=== PATIENT | male | born 1940 | race Caucasian/White ===

== ENCOUNTER 2022-04-12 10:29 | Day surgery (SDC) | payer MEDICARE, OTHER ==
[~2022-04-12] VITALS: Ht 193 cm; Wt 71.0 kg
[~2022-04-12 10:29] MED LIST: ASPI325 PO; Cipro500 MG PO; DOCU100 PO; FINA5 PO; Flomax0.4 MG PO; LISI5 PO; METF500 PO; METO100ER PO; NITR.8TP TOP; Nitrostat0.4 MG SL; OXYACE5T PO; Simvastatin20 MG PO
[2022-04-12] MEDS ORDERED: ASPI81CH PO (11:36)
[2022-04-12] MEDS ORDERED: Nitroglycerin1 EAC1 TOP (11:37)
[2022-04-12] MEDS ORDERED: TAMS.4ER PO (11:38)
--- NOTE | 2022-04-12 18:49 | NUR ---
ADMISSION/SHIFT SUMMARY: PT ADMITTED FROM [facility] [employer] THIS AFTERNOON S/P PACEMAKER PLACEMENT. PT ARRIVES A&Ox4, O2 SATS >92% ON RA, PT DENIES SOB. PACEMAKER PLACED TO R UPPER CHEST, MINIMAL EXUDATE ONTO COVERING BANDAGE (UNCHANGED SINCE INITIAL ARRIVAL TO ROOM), SLING APPLIED TO R ARM, ICE PROVIDED TO PT, PT C/O DULL ACHE TO R UPPER CHEST AND MEDICATED PER EMAR. DURING RECOVERY VITALS, PT NOTED TO BE HYPERTENSIVE, PROVIDER NOTIFIED, BP HAS TRENDED DOWN TO WNL AT THIS TIME. SR ON MONITOR W/RATE 60s-70s. PT RESTING QUIETLY IN ROOM W/CALL LIGHT IN REACH. WILL CONTINUE TO MONITOR AND TREAT ACCORDINGLY UNTIL CHANGE OF SHIFT.
--- NOTE | 2022-04-13 05:03 | NUR ---
SHIFT SUMMARY: PT ALERT AND ORIENTED X4, ABLE TO FOLLOW COMMANDS AND MAKE NEEDS KNOWN. COOPERATIVE WITH CARE. BP STABLE, HR PACED 70'S-80'S, AFEBRILE, SATURATIONS >98% ON ROOM AIR. RESPIRATIONS EVEN AND UNLABORED. PT DENIES CP/PRESSURE/SOB. PULSES STRONG AND EQUAL THROUGHOUT. PT POST PACEMAKER PLACEMENT TO R. CHEST WALL. MINIMAL OOZING NOTED ON DRESSING, SLIGHT BRUISING NOTED. SLING IN PLACE. EDUCATION PROVIDED ON RESTRICTED MOVEMENT. MEDICATED X2 FOR PAIN THROUGHOUT THE NIGHT WITH GOOD RESULTS. PT WITH 6 BEAT RUN OF [place]ACH, SEE RHYTHM STRIP IN CHART. ABLE TO TRANSFER TO AND FROM BATHROOM VIA SBA. PLAN FOR POSSIBLE D/C THIS AM. BED IN LOW, CALL LIGHT IN REACH, WILL REPORT TO ONCOMING RN.
--- NOTE | 2022-04-13 08:40 | NUR ---
NURSING PCU DAYSHIFT: Assumed care of pt at approx 0700. A/O, very pleasant, cooperative w/care. C/O 04/06 RCW discomfort r/t recent pacemaker placement, denies need for tx. NEAL in sling to limit ROM, dressing in place, intact w/small amt of drainage unchanged from previous day. Pt able to reposition and xfer independently, SBA for line/equipment management only. Tele in place, NSR w/occ atrial/vent pacing, occ PVC's, no c/o cardiac related CP/pressure, no noted edema, SBP 140's prior to a.m. meds. L/S cta t/o, O2 sat 99% on RA, denies dyspnea, no noted cough. Abd SNT, BT+, voiding w/o difficulty per pt. PIV x1, s/l w/abx as scheduled. Spoke w/rooming house keeper this a.m., new d/o received for metoprolol succinate, first dose to be administered this a.m. S/O currently at bedside, plan of care discussed. Pt and s/o deny any current questions/needs, plan for discharge this afternoon. No s/s of acute distress, call light in reach, cont to monitor for any changes.
[2022-04-13] MEDS ORDERED: METO100ER PO (13:11)
[2022-04-13] MEDS ORDERED: CEPH500 PO (13:12)
--- NOTE | 2022-04-13 14:30 | NUR ---
NURSING PCU DISCHARGE SUMMARY: No significant changes noted t/o the a.m. Seen by machine shop lead man at approx 1300. Pacer site assessed and dressing changed. Discharge home d/o received. Rx's faxed to [facility] pharmacy per pt request. Pt and s/o verbalized understanding of all written and verbal discharge instructions. PIV dc'd w/cath intact. No s/s of acute distress at time of discharge. Pt escorted from unit via w/c at approx 1400.
== END 2022-04-13 14:35 | disposition home or self-care (01) ==
LOC: MHTC 10:29 → PCU 15:23 → MHTC 04-13 14:35
DX: I49.5 Sick sinus syndrome (principal); I47.1 Supraventricular tachycardia; I48.0 Paroxysmal atrial fibrillation; I25.10 Atherosclerotic heart disease of native coronary artery without angina pectoris; I44.1 Atrioventricular block, second degree; R55 Syncope and collapse
CPT/HCPCS: 33208; 71045; 71046; 76937; 99152; 99153; A9270; C1781; C1785; C1894; C1898; J0690; J1644; J2250; J3010; J7040

== ENCOUNTER 2024-06-12 06:24 | Emergency (ER) | payer MEDICARE, OTHER ==
[~2024-06-12] VITALS: Ht 193 cm; Wt 74.8 kg
[~2024-06-12 06:24] MED LIST changes: +ASPI81CH PO; +CEPH500 PO; +Nitroglycerin1 EAC1 TOP; +TAMS.4ER PO
[2024-06-12 06:32] VITALS: BP 152/113
[2024-06-12 06:55] LABS: Source, Urine Clean Catch
[2024-06-12 07:14] LABS: BASOPHILS ABSOLUTE AUTO 0.04 K/mm3 (0.00-0.23); BASOPHILS PERCENT AUTO 1 % (0-2); EOSINOPHILS PERCENT AUTO 1 % (0-6); Hematocrit 40.6 % (37.0-53.0); Hemoglobin 13.8 g/dL (13.5-17.5); IMMATURE GRAN ABSOLUTE AUTO 0.04 K/mm3 (0.00-0.10); IMMATURE GRAN PERCENT AUTO 1 % (0-1); LYMPHOCYTES ABSOLUTE AUTO 2.48 K/mm3 (0.84-5.20); LYMPHOCYTES PERCENT AUTO 36 % (21-46); MONOCYTES ABSOLUTE AUTO 0.78 K/mm3 (0.16-1.47); MONOCYTES PERCENT AUTO 11 % (4-13); Mean Corpuscular HGB 31.1 pg (26.0-34.0); Mean Corpuscular Volume 91 fL (80-100); NEUTROPHILS ABSOLUTE AUTO 3.52 K/mm3 (1.96-9.15); NEUTROPHILS PERCENT AUTO 51 % (41-73); Platelet Count 197 K/mm3 (150-400); RDW Coefficient Variation 12.6 % (11.7-14.2); RDW Standard Deviation 41.3 fL (35.1-46.3); Red Blood Cell Count 4.44 M/mm3 (4.30-5.90); White Blood Cell Count 6.96 K/mm3 (4.00-11.30)
[2024-06-12 07:32] LABS: International Normalized Ratio 0.96; Prothrombin Time Results 10.3 Sec (9.7-11.5)
[2024-06-12] MEDS ORDERED: ELIQUIS2.5 M1 PO (07:34)
[2024-06-12 07:40] LABS: Bun/Creatinine Ratio 18.8 (12.0-20.0); Creatinine, Blood 0.96 mg/dL (0.60-1.20); Potassium, Blood 4.1 mmol/L (3.5-5.5)
[2024-06-12 07:45] LABS: Appearance, Urine Bloody (Clear); Bilirubin, Urine Neg (Neg); Blood, Urine 5+ (Neg); Color, Urine Red (P-Yellow); Glucose Qualitative, Urine Neg (Neg); Ketones, Urine Neg (Neg); Leukocyte Esterase, Urine Neg (Neg); Nitrite, Urine Neg (Neg); Protein, Urine 3+ (Neg); Urobilinogen, Urine NORM (Normal)
[2024-06-12 08:18] LABS: Bacteria Rare /hpf; Red Blood Cells, Urine TNTC /hpf (0-2); Squamous Epithelial Cells Few /hpf (Few); White Blood Cells, Urine 0-2 /hpf (0-5)
== END 2024-06-12 08:50 | disposition home or self-care (01) ==
LOC: ER 06:24
PROVIDERS: Student in an Organized Health Care Education/Training Program
DX: R31.0 Gross hematuria (principal); I10 Essential (primary) hypertension; I25.10 Atherosclerotic heart disease of native coronary artery without angina pectoris; I25.2 Old myocardial infarction; I48.91 Unspecified atrial fibrillation; E11.9 Type 2 diabetes mellitus without complications; N40.0 Benign prostatic hyperplasia without lower urinary tract symptoms; Z95.0 Presence of cardiac pacemaker; Z95.1 Presence of aortocoronary bypass graft; Z79.01 Long term (current) use of anticoagulants; Z79.84 Long term (current) use of oral hypoglycemic drugs; Z79.82 Long term (current) use of aspirin; Z79.899 Other long term (current) drug therapy
CPT/HCPCS: 80048; 81001; 85025; 85610; 85730; 99283-25

== ENCOUNTER → 2024-06-14 | Outpatient (CLI) | payer MEDICARE, OTHER ==
[~2024-06-14] MED LIST changes: +ELIQUIS2.5 M1 PO
== END ==
LOC: LAB SHORT 17:37 → LAB 17:37
DX: N39.0 Urinary tract infection, site not specified (principal)
CPT/HCPCS: 87077; 87086; 87186

== ENCOUNTER → 2024-09-24 | Outpatient (CLI) | payer MEDICARE, OTHER ==
[2024-09-24 10:06] LABS: Source, Urine Clean Catch
[2024-09-24 12:02] LABS: BASOPHILS ABSOLUTE AUTO 0.05 K/mm3 (0.00-0.23); BASOPHILS PERCENT AUTO 1 % (0-2); EOSINOPHILS ABSOLUTE AUTO 0.13 K/mm3 (0.00-0.68); EOSINOPHILS PERCENT AUTO 2 % (0-6); Hematocrit 39.3 % (37.0-53.0); Hemoglobin 13.3 g/dL (13.5-17.5); IMMATURE GRAN ABSOLUTE AUTO 0.02 K/mm3 (0.00-0.10); IMMATURE GRAN PERCENT AUTO 0 % (0-1); LYMPHOCYTES ABSOLUTE AUTO 2.21 K/mm3 (0.84-5.20); LYMPHOCYTES PERCENT AUTO 33 % (21-46); MONOCYTES ABSOLUTE AUTO 0.61 K/mm3 (0.16-1.47); MONOCYTES PERCENT AUTO 9 % (4-13); Mean Corpuscular HGB 30.9 pg (26.0-34.0); Mean Corpuscular HGB Conc 33.8 g/dL (31.5-36.5); Mean Corpuscular Volume 91 fL (80-100); Mean Platelet Volume 10.5 fL (9.1-12.4); NEUTROPHILS ABSOLUTE AUTO 3.64 K/mm3 (1.96-9.15); NEUTROPHILS PERCENT AUTO 55 % (41-73); Platelet Count 161 K/mm3 (150-400); RDW Coefficient Variation 12.6 % (11.7-14.2); RDW Standard Deviation 42.1 fL (35.1-46.3); Red Blood Cell Count 4.31 M/mm3 (4.30-5.90); White Blood Cell Count 6.66 K/mm3 (4.00-11.30)
[2024-09-24 12:14] LABS: Appearance, Urine Clear (Clear); Bilirubin, Urine Neg (Neg); Blood, Urine Neg (Neg); Color, Urine Yellow (P-Yellow); Glucose Qualitative, Urine 1+ (Normal); Ketones, Urine Neg (Neg); Leukocyte Esterase, Urine Neg (Neg); Nitrite, Urine Neg (Neg); Protein, Urine Neg (Neg); Specific Gravity, Urine 1.015 (1.003-1.022); Urobilinogen, Urine NORM (Normal)
[2024-09-24 13:35] LABS: Alanine Aminotransfer (ALT/SGP 17 U/L (12-78); Albumin, Blood 3.8 g/dL (3.4-5.0); Albumin/Globulin Ratio 1.2 (0.8-1.8); Alk Phos 75 U/L (40-126); Anion Gap 14 mmol/L (6-16); Aspartate Aminotrans (AST/SGOT 19 U/L (12-37); Bilirubin, Total 0.6 mg/dL (0.1-1.0); Blood Urea Nitrogen 15 mg/dL (8-24); Bun/Creatinine Ratio 14.7 (12.0-20.0); CHOL/HDL RATIO 4.4; CO2, Blood 29 mmol/L (21-32); Calcium, Blood 9.5 mg/dL (8.5-10.1); Chloride, Blood 102 mmol/L (98-108); Cholesterol 208 mg/dL (50-200); Creatinine, Blood 1.02 mg/dL (0.60-1.20); Globulin, Blood 3.3 g/dL (2.2-4.0); Glomerular Filtration Rate 72 (60-); Glucose, Blood 129 mg/dL (70-99); HDL Cholesterol 47 mg/dL (>39); Low Density Lipoprotein Chol 140 mg/dL (<110); Potassium, Blood 4.5 mmol/L (3.5-5.5); Sodium, Blood 140 mmol/L (136-145); Total Protein, Blood 7.1 g/dL (6.4-8.2); Triglycerides 103 mg/dL (30-160); Very Low Density Lipoprot Chol 20 mg/dL (6-32)
== END | disposition home or self-care (01) ==
LOC: LAB 10:04 → LAB SHORT 10:04
PROVIDERS: Registered Nurse
DX: E78.5 Hyperlipidemia, unspecified (principal); I10 Essential (primary) hypertension; I25.708 Atherosclerosis of coronary artery bypass graft(s), unspecified, with other forms of angina pectoris; R31.0 Gross hematuria; Z79.899 Other long term (current) drug therapy
CPT/HCPCS: 36415; 80053; 80061; 81003; 85025

== ENCOUNTER → 2025-02-26 | Outpatient (CLI) | payer MEDICARE, OTHER ==
[2025-02-27 04:02] LABS: Creatinine, Urine Random 73.9 mg/dL (27.00-270.00); Microalbumin, Random Urine 11.9 mg/L (0.000-20.000)
== END | disposition home or self-care (01) ==
LOC: LAB SHORT 18:04 → LAB 18:04
PROVIDERS: Family Medicine
DX: E11.69 Type 2 diabetes mellitus with other specified complication (principal)
CPT/HCPCS: 82043; 82570